=== PATIENT | female | born 2000 | race Caucasian/White ===

== ENCOUNTER 2019-03-19 02:04 | Emergency (ER) | payer SELFPAY ==
[2019-03-19 02:45] VITALS: TEMP 100
[2019-03-19 02:51] LABS: BASO % 0.4 % (0.0-2.0); EOS % 0.2 % (0-4.0); GRAN # 5.9 (1.4-6.5); GRAN % 64.5 % (42.2-75.2); HEMATOCRIT 38.6 % (35.0-45.0); HEMOGLOBIN 12.8 g/dl (12.0-15.0); LYMPH # 2.6 (1.2-3.4); LYMPH % 28.9 % (20.0-51.0); MEAN CELL VOLUME 87 fl (80.0-95.0); MEAN CORPUSCULAR HEMOGLOBIN 29 pg (26.0-32.0); MEAN CORPUSCULAR HGB CONC 33 g/dl (33.0-37.0); MEAN PLATELET VOLUME 9.9 fl (7.4-10.4); MONO # 0.5 (0.1-0.6); MONO % 5.4 % (1.7-9.3); PLATELET COUNT 353 K/mm3 (130-400); RED BLOOD COUNT 4.45 M/mm3 (4.10-5.30); REDCELL DISTRIBUTION WIDTH-CV 12.4 % (11.5-14.5)
[2019-03-19 03:00] LABS: COLLECTION METHOD CLEAN CATCH
[2019-03-19 03:02] LABS: ALANINE AMINOTRANSFERASE 12 U/L (9-52); ALBUMIN 4.7 gm/dL (3.5-5.0); ALCOHOL(ethanol),MEDICAL 135 mg/dL; ALKALINE PHOSPHATASE 87 U/L (50-136); ANION GAP 15 mmol/L (7-16); AST,SGOT 26 U/L (15-37); BILIRUBIN,TOTAL 0.1 mg/dL (0.0-1.0); BLOOD UREA NITROGEN 11 mg/dL (7-17); CALCIUM 9.6 mg/dL (8.4-10.2); CARBON DIOXIDE 20 mmol/L (22-30); CHLORIDE 111 mmol/L (98-107); CREATININE, serum 0.71 (0.52-1.25); GLUCOSE 107 mg/dL (74-106); POTASSIUM 3.7 mmol/L (3.4-5.0); SODIUM 147 mmol/L (137-145); TOTAL PROTEIN 8.8 gm/dL (6.4-8.2)
[2019-03-19 03:03] LABS: ACETAMINOPHEN < 10 ug/mL (10-30); SALICYLATE < 1.0 mg/dL
[2019-03-19 03:05] LABS: PH 6 (5-8); SQUAMOUS EPITHELIAL 0-2 /hpf; URINE APPEARANCE Clear; URINE BACTERIA Rare /hpf; URINE BILIRUBIN Negative (NEGATIVE); URINE BLOOD 1+ (NEGATIVE); URINE COLOR Yellow; URINE GLUCOSE Negative (NEGATIVE); URINE KETONE Negative (NEGATIVE); URINE LEUKOCYTE ESTERASE Negative (NEGATIVE); URINE NITRATE Negative (NEGATIVE); URINE PROTEIN(semi-quant) Negative (NEGATIVE); URINE RBC 0-2 /hpf; URINE UROBILINOGEN Negative (NEGATIVE)
[2019-03-19 03:26] LABS: TRICYCLIC ANTIDEPRESS URINE NEGATIVE
[2019-03-19 11:41] VITALS: BP 121/81; PULSE 85
== END 2019-03-19 11:44 | disposition home or self-care (01) ==
LOC: COL.ER 02:04
PROVIDERS: Emergency Medicine
DX: S61.512A Laceration without foreign body of left wrist, initial encounter (principal); J45.909 Unspecified asthma, uncomplicated; F12.90 Cannabis use, unspecified, uncomplicated; X83.8XXA Intentional self-harm by other specified means, initial encounter
CPT/HCPCS: J1630; J2060